=== PATIENT | female | born 1960 | race Caucasian/White ===

== ENCOUNTER 2017-06-19 11:16 | Emergency (ER) | payer BC ==
[2017-06-19 11:57] LABS: BASOPHILS % (AUTO) 0.4 %; EOSINOPHILS # (AUTO) 0.1 10^3/uL (0.0-0.7); EOSINOPHILS % (AUTO) 1.8 %; HGB - HEMOGLOBIN 14.6 g/dL (12.0-16.0); LYMPHOCYTES # (AUTO) 2.8 10^3/uL (1.5-3.5); LYMPHOCYTES % (AUTO) 40.2 %; MEAN CORPUSCULAR HEMOGLOBIN 30.9 pg (27.0-31.0); MEAN CORPUSCULAR HGB CONC 34.1 g/dL (32.0-36.0); MEAN CORPUSCULAR VOLUME 90.6 fL (81.0-99.0); MEAN PLATELET VOLUME 8.8 fL (7.9-10.8); MONOCYTES # (AUTO) 0.5 10^3/uL (0.0-1.0); NEUTROPHILS # (AUTO) 3.6 10^3/uL (1.5-6.6); NEUTROPHILS % (AUTO) 50.6 %; PLT - PLATELET COUNT 286 10^3/uL (130-450); RED BLOOD COUNT 4.71 10^6/uL (4.20-5.40)
[2017-06-19 12:10] LABS: ALBUMIN 4.7 g/dL (3.2-5.5); ALBUMIN/GLOBULIN RATIO 1.7 (1.0-2.2); BILIRUBIN,TOTAL 0.5 mg/dL (0.2-1.0); CALCIUM 9.8 mg/dL (8.5-10.3); CREATININE 0.7 mg/dL (0.4-1.0); TOTAL PROTEIN 7.5 g/dL (6.7-8.2)
[2017-06-19 12:27] LABS: BILIRUBIN,URINE NEGATIVE (NEGATIVE); CLARITY,URINE CLEAR (CLEAR); GLUCOSE, URINE (UA) NEGATIVE (NEGATIVE); KETONES,URINE (UA) NEGATIVE (NEGATIVE); LEUKOCYTE ESTERASE, URINE NEGATIVE (NEGATIVE); NITRITE,URINE NEGATIVE (NEGATIVE); OCCULT BLOOD,URINE NEGATIVE (NEGATIVE); PROTEIN,URINE NEGATIVE (NEGATIVE); UROBILINOGEN,URINE 0.2 (NORMAL) E.U./dL (NORMAL)
[2017-06-19] MEDS ORDERED: HYDROcod/ACETAM 5/325 MG TABLET PO STA (12:44)
--- NOTE | 2017-06-19 12:47 | ED Physician Documentation ---
PD HPI ABD PAIN - Stated complaint Stated Complaint: LT SIDE PX - Chief complaint Chief Complaint: Abd Pain - History obtained from History obtained from: Patient, Friend - History of Present Illness Timing - onset: How many days ago (3) Timing - duration: Days (3) Timing - details: Gradual onset, Still present Quality: Aching, Fullness/distended, Pain Location: LUQ Radiation: Left flank Improved by: Other (nothing) Worsened by: Other (nothing) Associated symptoms: No: Fever, Nausea, Vomiting Similar symptoms before: Has not had sx before Recently seen: Not recently seen - Additional information Additional information: 56-year-old female has had some pain in her left flank for the past 3 days. She has had this pain on and off lasting maybe an hour it is now become persistent and worse. She does not have any modifying factors for the pain. She is able to breathe deeply she does not have a cough she does not fever she is not having urinary symptoms. She has not had vomiting Review of Systems Constitutional: denies: Fever, Chills Eyes: denies: Decreased vision Ears: denies: Ear pain Nose: denies: Congestion Throat: denies: Sore throat Cardiac: denies: Chest pain / pressure Respiratory: denies: Dyspnea, Cough GI: reports: Abdominal Pain. denies: Nausea, Vomiting, Constipation, Diarrhea : denies: Dysuria, Frequency Skin: denies: Rash Musculoskeletal: reports: Back pain. 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 - Present Medications Home Medications: Ambulatory Orders Medication Instructions Recorded Confirmed HYDROcod/ACETAM 5/325 [[place] 5/325] 1 - 2 ea PO Q6H PRN #15 tablet 06/19/17 - Allergies Allergies/Adverse Reactions: Allergies Allergy/AdvReac Type Severity Reaction Status Date / Time bee venom protein (honey bee) Allergy Rash Verified 06/19/17 11:30 gluten Allergy Nausea Verified 06/19/17 11:30 Penicillins Allergy Rash Verified 06/19/17 12:19 - Social History Does the pt smoke?: No Smoking Status: Never smoker Does the pt drink ETOH?: No Does the pt have substance abuse?: No - Immunizations Immunizations are current?: Yes PD ED PE NORMAL - Vitals Vital signs reviewed: Yes (Hypertensive mild) - General General: Alert and oriented X 3, No acute distress, Well developed/nourished - HEENT HEENT: Atraumatic, PERRL, EOMI - Neck Neck: Supple, no meningeal sign - Cardiac Cardiac: RRR, No murmur - Respiratory Respiratory: No respiratory distress, Clear bilaterally, Other (There is no tenderness to palpation of the ribs on the lateral left chest.) - Abdomen Abdomen: Soft, Non tender, Other (Specifically there is no tenderness to bimanual palpation of the left kidney.) - Back Back: No CVA TTP, No spinal TTP - Derm Derm: Normal color, Warm and dry, No rash - Extremities Extremities: No deformity, No edema - Neuro Neuro: No motor deficit, No sensory deficit Eye Opening: Spontaneous Motor: Obeys Commands Verbal: Oriented GCS Score: 15 - Psych Psych: Normal mood, Normal affect Results - Vitals Vitals: Vital Signs - 24 hr 06/19/17 06/19/17 06/19/17 11:28 13:46 15:44 Temperature 36.1 C L Heart Rate 80 57 L 76 Respiratory 19 18 16 Rate Blood Pressure 140/71 H 146/77 H 122/85 H O2 Saturation 97 98 99 Oxygen O2 Source Room air - Labs Labs: Laboratory Tests 06/19/17 06/19/17 06/19/17 11:50 11:50 12:15 WBC 7.0 RBC 4.71 Hgb 14.6 Hct 42.7 MCV 90.6 MCH 30.9 MCHC 34.1 RDW 13.0 Plt Count 286 MPV 8.8 Neut # 3.6 Lymph # 2.8 Bertie # 0.5 Eos # 0.1 Baso # 0.0 Absolute Nucleated RBC 0.01 Nucleated RBC % 0.1 Sodium 139 Potassium 3.8 Chloride 102 Carbon Dioxide 26 Anion Gap 11.0 BUN 13 Creatinine 0.7 Estimated GFR (MDRD) 87 L Glucose 108 H Calcium 9.8 Total Bilirubin 0.5 AST 22 ALT 29 Alkaline Phosphatase 77 Total Protein 7.5 Albumin 4.7 Globulin 2.8 Albumin/Globulin Ratio 1.7 Lipase 54 H Urine Color LIGHT YELLOW Urine Clarity CLEAR Urine pH 7.0 Ur Specific [place] <=1.005 Urine Protein NEGATIVE Urine Glucose (UA) NEGATIVE Urine Ketones NEGATIVE Urine Occult Blood NEGATIVE Urine Nitrite NEGATIVE Urine Bilirubin NEGATIVE Urine Urobilinogen 0.2 (NORMAL) Ur Leukocyte Esterase NEGATIVE Ur Microscopic Review NOT INDICATED Urine Culture Comments NOT INDICATED - Rads (name of study) cT abdomen and pelvis Radiology: Prelim report reviewed (Impression: 1. 6 mm nonobstructing left lower pole renal calculus. 2. No obstructing urinary calculi seen bilaterally, nore hydronephrosis. 3. Unremarkable appearance of the urinary bladder without calculi. Addendum approximately 3.5 mm calcified density seen in the left lower pelvis could represent a pelvic phlebolith versus possible distal ureteral calculus. Again no evidence for left-sided urinary obstruction.), Final report received, Discussed with rads, EMP read indepedently, See rad report Procedures - Bedside sono Bedside sono by EMP: With use of bedside ultrasound the left kidney is imaged there is evidence of mild hydronephrosis and the kidney is sonographically nontender. PD MEDICAL DECISION MAKING - ED course Complexity details: reviewed results, re-evaluated patient, considered differential, d/w patient, d/w family ED course: 56-year-old female with left flank pain without modifying factors has mild hydronephrosis on bedside examination and she is administered Vicodin orally and a CT scan of the abdomen and pelvis is obtained. The patient does have improvement in her pain she does not have resolution of her pain. CT scan does not show hydronephrosis but does show a stone in the left kidney and a stone at the ureterovesicular junction likely. Departure - Departure Disposition: 01 Home, Self Care Clinical Impression: Ureterolithiasis Condition: Stable Instructions: ED Stone Renal W Colic Follow-Up: Your, doctor [Other] Prescriptions: HYDROcod/ACETAM 5/325 [[place] 5/325] 1 - 2 ea PO Q6H PRN #15 tablet PRN Reason: Pain Discharge Date/Time: 06/19/17 15:44
--- NOTE | 2017-06-19 13:35 | CT Report ---
EXAM: CT ABDOMEN AND PELVIS (CT KUB) EXAM DATE: 06/19/2017 01:25 PM. CLINICAL HISTORY: Left flank pain . COMPARISONS: None. TECHNIQUE: Routine axial helical CT imaging was performed through the abdomen and pelvis without IV c ontrast. Reconstructions: Coronal and sagittal. In accordance with CT protocol optimization, one or more of the following dose reduction techniques w ere utilized for this exam: automated exposure control, adjustment of mA and/or KV based on patient s ize, or use of iterative reconstructive technique. FINDINGS: Lung Bases: Unremarkable. Right Kidney/Ureter: No stones, hydronephrosis, or hydroureter. No perinephric fat stranding. Left Kidney/Ureter: 6 mm nonobstructing left lower pole calculus (5/51). No other left-sided calculi. No hydronephrosis. No contour deforming masses. Normal caliber left ureter without evidence for calc shena or filling defects. Other Solid Organs: Noncontrast images of the solid organs are grossly unremarkable. Gallbladder/Bile Ducts: Unremarkable. Peritoneal Cavity: No free fluid, free air or jose adenopathy. Bowel is grossly unremarkable. Pelvic Organs: No bladder stones or wall thickening. Noncontrast images of the visualized pelvic orga ns are unremarkable. Vasculature: Unremarkable. Other: None. IMPRESSION: 1. 6 mm nonobstructing left lower pole renal calculus. 2. No obstructing urinary calculi seen bilaterally, nor hydronephrosis. 3. Unremarkable appearance of the urinary bladder without calculi. [facility] Referring Provider Line: [phone] SITE ID: [id number]
[2017-06-19 15:48] VITALS: BP 122/85
== END 2017-06-19 15:44 | disposition home or self-care (01) ==
LOC: ED 11:16
DX: N13.2 Hydronephrosis with renal and ureteral calculous obstruction (principal)
CPT/HCPCS: 36415; 74176; 80053; 81003; 83690; 85025; 99283; 99284; A9270; 81001; 87086